=== PATIENT | female | born 1950 | race Caucasian/White ===

== ENCOUNTER 2022-01-03 08:48 | Observation (INO) ==
--- NOTE | 2021-12-02 15:55 | PAT Medication Instructions ---
Medication Instructions Date of Service December 02, 2021 Home Medications atenolol 100 mg-chlorthalidone 25 mg tablet 1 tab PO QAM atorvastatin 10 mg tablet 10 mg PO QAM gabapentin 300 mg capsule 300 mg PO HS loratadine 5 mg-pseudoephedrine ER 120 mg tablet,extended release,12hr (Claritin-D 12 Hour) 1 tab PO Q12H PRN folic acid 800 mcg tablet 4,000 mcg PO QAM metformin 500 mg tablet 500 mg PO QAM methotrexate sodium 2.5 mg tablet 12.5 mg PO Q7D omega-3 fatty acids-vitamin E 1,000 mg capsule 2 cap PO BID paroxetine HCl 20 mg tablet (Paxil) 40 mg PO QAM cholecalciferol (vitamin D3) 50 mcg (2,000 unit) capsule (Vitamin D3) 50 mcg PO HS cyanocobalamin (vitamin B-12) 2,500 mcg tablet 2,500 mcg PO QAM meloxicam 15 mg tablet 15 mg PO QAM STOP 7 days before surgery methotrexate sodium 2.5 mg tablet 12.5 mg PO Q7D ASK your surgeon for instructions meloxicam 15 mg tablet 15 mg PO QAM STOP taking 2 weeks before surgery omega-3 fatty acids-vitamin E 1,000 mg capsule 2 cap PO BID DO NOT take the morning of surgery loratadine 5 mg-pseudoephedrine ER 120 mg tablet,extended release,12hr (Claritin-D 12 Hour) 1 tab PO Q12H PRN folic acid 800 mcg tablet 4,000 mcg PO QAM metformin 500 mg tablet 500 mg PO QAM cyanocobalamin (vitamin B-12) 2,500 mcg tablet 2,500 mcg PO QAM Take morning of surgery With a small sip of water, OTHERWISE NOTHING TO EAT OR DRINK AFTER MIDNIGHT: atenolol 100 mg-chlorthalidone 25 mg tablet 1 tab PO QAM atorvastatin 10 mg tablet 10 mg PO QAM paroxetine HCl 20 mg tablet (Paxil) 40 mg PO QAM Take evening before surgery gabapentin 300 mg capsule 300 mg PO HS loratadine 5 mg-pseudoephedrine ER 120 mg tablet,extended release,12hr (Claritin-D 12 Hour) 1 tab PO Q12H PRN(if needed) cholecalciferol (vitamin D3) 50 mcg (2,000 unit) capsule (Vitamin D3) 50 mcg PO HS Other Notes If you have any questions please call us at [phone] or [phone] or [phone] or [phone]
--- NOTE | 2021-12-06 11:35 | Anesthesiology Consultation ---
Date of Service December 06, 2021 Assessment & Plan (1) Encounter for pre-operative examination: - COVID screening: Per assessment on 12/06: No known COVID-19 positive contacts or current COVID-19 related symptoms. Travel screen negative. Patient vaccinated. Surgeon arranging preop COVID testing. Awaiting results. - S/P Left shoulder arthroscopy, RCR, debridement (02/09/20): LMA#4 + PNB at [facility]. No issues per anesthesia progress note. - S/P Right SHALA (04/12/21): SAB x3 attempts, "pt moving around.. O2 sats decreasing even in the presence of oral airway and jaw thrust.. LMA inserted atraumatically.. O2 sats increased to 100%." - Check BSG AM DOS - Hx LBBB: NS IVCD on 11/2021 EKG but LBBB noted on 04/2021 EKG (also dating back to 02/2020 EKG in [facility]). No recent echo or previous cardiology evaluation. Pt with multiple risk factors (obesity, HÉCTOR, diabetes). Case reviewed with Dr. Gil. Recommends cardiology preop evaluation prior to surgery- will need to be arranged. Chart Review Chart Review: Patient seen in Pre Admission Testing Teaching & Discussion Pre-Anesthesia Teaching/Discussion Notes: Instructed NPO after midnight before surgery,except medications with 15 cc of water. Medication instructions provided according to the PAT guidelines. History Surgery Operation Date: 01/03/22 10:10 Proposed Procedures p Left Total Knee Arthroplasty - Balaji Love, Height/Weight Height: 5 ft 6 in Weight: 98 kg Allergies Allergy/AdvReac Type Severity Reaction Status Date / Time No Known Allergies Allergy Verified 11/29/21 15:04 Medications Home Medications Medication Instructions Recorded Confirmed Last Taken atenolol 100 mg-chlorthalidone 25 1 tab PO QAM 01/17/20 11/29/21 04/10/21 10:30 mg tablet atorvastatin 10 mg tablet 10 mg PO QAM 01/17/20 11/29/21 04/10/21 10:30 gabapentin 300 mg capsule 300 mg PO HS 01/17/20 11/29/21 04/10/21 23:00 loratadine 5 mg-pseudoephedrine ER 1 tab PO Q12H PRN SEASONAL 01/17/20 11/29/21 04/05/21 09:00 120 mg tablet,extended ALLERGIES release,12hr (Claritin-D 12 Hour) folic acid 800 mcg tablet 4,000 mcg PO QAM 01/24/20 11/29/21 04/10/21 10:30 metformin 500 mg tablet 500 mg PO QAM 01/24/20 11/29/21 04/10/21 10:30 methotrexate sodium 2.5 mg tablet 12.5 mg PO Q7D 01/24/20 11/29/21 03/30/21 10:30 omega-3 fatty acids-vitamin E 2 cap PO BID 01/24/20 11/29/21 03/29/21 10:30 1,000 mg capsule paroxetine HCl 20 mg tablet (Paxil) 40 mg PO QAM 05/30/20 11/29/21 04/11/21 10:30 cholecalciferol (vitamin D3) 50 50 mcg PO HS 03/08/21 11/29/21 04/10/21 10:30 mcg (2,000 unit) capsule (Vitamin D3) cyanocobalamin (vitamin B-12) 2,500 mcg PO QAM 11/29/21 11/29/21 Unknown 2,500 mcg tablet meloxicam 15 mg tablet 15 mg PO QAM 11/29/21 11/29/21 Unknown Past Medical History Medical History Anxiety Stable Diabetes NIDDM, controlled per pt Fatty liver High cholesterol History of breast cancer Right (2004) s/p surgery and radiation-lymph node excision per pt, denies limb restriction History of uterine cancer 2006 s/p hysterectomy HTN (hypertension) controlled per pt, stable LBBB (left bundle branch block) Noted on 04/12/21 EKG Rheumatoid arthritis Sleep apnea CPAP-nightly Exercise / Class Metabolic Activity II 4-5 Yardwork/Stairs/Walk up hill Past Family History Family History Brother Family history of colon cancer Past Surgical History Surgical History History of 3 sections History of colonoscopy History of hysterectomy History of repair of rotator cuff Left shoulder arthroscopy, RCR, debridement (02/09/20): LMA#4 + PNB at [facility]. No issues per anesthesia progress note. History of surgery C7-T1 laminotomy History of surgery x2 Right breast (denies limb restriction) History of tonsillectomy Hx of total hip arthroplasty Right SHALA (04/12/21): SAB x3 attempts, "pt moving around.. O2 sats decreasing even in the presence of oral airway and jaw thrust.. LMA inserted atr aumatically.. O2 sats increased to 100%." Past Anesthesia History No Family Hx of Anesthesia Complications and Other (Right SHALA (04/12/21): SAB x3 attempts, "pt moving around.. O2 sats decreasing even in the presence of oral airway and jaw thrust.. LMA inserted atraumatically.. O2 sats increased to 100%.") History of PONV No Hx of PONV and No Hx of Motion Sickness Social History Smoking Status: Never smoker Do You Dip or Chew Tobacco: No Hx Alcohol Use: Yes Alcohol type: wine alcohol intake frequency: holidays/special occasions only Hx Substance Use: No substance use type: does not use Review of Systems Patient denies chest pain, shortness of breath, dyspnea on exertion, fever, chills, cough, wheezing, palpitations. Physical Exam Vital Signs VITALS BP 137/84 P 62 TEMP 98.4 SP02 98%RA RESP 16 PHYSICAL Full cervical extension range of motion. Full TMJ range of motion. TMD 2.5 finger breaths Mallampati Score 3 Dentition: intact, + crown Lungs: clear throughout to auscultation Cardiac: regular rate and rhythm, no murmurs noted Spine: normal Carotid arteries: negative bruit Extremities: no edema Lab Results Anesthesia Preop Results Results Anesthesia Widget: WBC 6.32 K/ul (4.8-10.8) 12/06/21 Hgb 11.7 g/dl (12.0-16.0) L 12/06/21 Hct 34.7 % (34.1-44.9) 12/06/21 Plt 184 K/uL (130-400) 12/06/21 Na 137 mmol/L (136-145) 12/06/21 K 3.7 mmol/L (3.5-5.1) 12/06/21 Cl 101 mmol/L (98-107) 12/06/21 CO2 31 mmol/L (21-32) 12/06/21 BUN 16 mg/dl (6-23) 12/06/21 Creat 0.70 mg/dl (0.6-1.2) 12/06/21 Glucose Level 107 mg/dl (70-99(Fasting)) H 12/06/21 PT 10.9 Seconds (9.0-12.0) 12/06/21 PTT 24.8 Seconds (21.0-31.0) 12/06/21 INR 1.0 (0.9-1.1) 12/06/21 HA1c 6.2 % (4.5-5.6) H 12/06/21 Blood Type A Positive 12/06/21 Antibody Screen NEGATIVE 12/06/21 Testing Electrocardiogram Date: 12/06/21 SR with first degree AVB at 60bpm. NS IVCD. Chest X-Ray Date: 12/06/21 FINDINGS: The lungs are clear. Cardiac silhouette is normal in size. No pleural effusions. No pneumothorax. Is 2.3 cm gallstone within the right upper quadrant. IMPRESSION: No acute process.
--- NOTE | 2022-01-02 09:40 | History & Physical Report ---
Date of Service January 02, 2022 Assessment & Plan (1) Osteoarthritis of left knee: We will proceed with a left total knee arthroplasty. Postoperatively she will be started on aspirin for DVT prophylaxis and kept overnight in the hospital for postoperative medical management. She plans to have home health in [place] upon discharge. History of Present Illness Chief Complaint: Osteoarthritis left knee. Primary Care Provider: ALEKSANDAR Vera Amarilis is a pleasant 71-year-old female who underwent a right hip replacement in April 2021. She is doing well with that. Unfortunately, she is really struggling with her left knee. I have been giving her serial injections. X- rays and clinical examination have been diagnostic for advanced arthritis of the left knee. After failing extensive conservative treatment, she has elected to proceed with a left total knee arthroplasty. . Allergies Allergy/AdvReac Type Severity Reaction Status Date / Time No Known Allergies Allergy Verified 11/29/21 15:04 Home Medications Medication Instructions Recorded Confirmed Type atenolol 100 mg-chlorthalidone 25 1 tab PO QAM 01/17/20 11/29/21 History mg tablet atorvastatin 10 mg tablet 10 mg PO QAM 01/17/20 11/29/21 History gabapentin 300 mg capsule 300 mg PO HS 01/17/20 11/29/21 History loratadine 5 mg-pseudoephedrine ER 1 tab PO Q12H PRN SEASONAL 01/17/20 11/29/21 History 120 mg tablet,extended ALLERGIES release,12hr (Claritin-D 12 Hour) folic acid 800 mcg tablet 4,000 mcg PO QAM 01/24/20 11/29/21 History metformin 500 mg tablet 500 mg PO QAM 01/24/20 11/29/21 History methotrexate sodium 2.5 mg tablet 12.5 mg PO Q7D 01/24/20 11/29/21 History omega-3 fatty acids-vitamin E 2 cap PO BID 01/24/20 11/29/21 History 1,000 mg capsule paroxetine HCl 20 mg tablet (Paxil) 40 mg PO QAM 05/30/20 11/29/21 History cholecalciferol (vitamin D3) 50 50 mcg PO HS 03/08/21 11/29/21 History mcg (2,000 unit) capsule (Vitamin D3) cyanocobalamin (vitamin B-12) 2,500 mcg PO QAM 11/29/21 11/29/21 History 2,500 mcg tablet meloxicam 15 mg tablet 15 mg PO QAM 11/29/21 11/29/21 History Past Med/Surg History Medical History Anxiety Stable Diabetes NIDDM, controlled per pt Fatty liver High cholesterol History of breast cancer Right (2004) s/p surgery and radiation-lymph node excision per pt, denies limb restriction History of uterine cancer 2006 s/p hysterectomy HTN (hypertension) controlled per pt, stable LBBB (left bundle branch block) Noted on 04/12/21 EKG Rheumatoid arthritis Sleep apnea CPAP-nightly Surgical History History of 3 sections History of colonoscopy History of hysterectomy History of repair of rotator cuff Left shoulder arthroscopy, RCR, debridement (02/09/20): LMA#4 + PNB at [facility]. No issues per anesthesia progress note. History of surgery C7-T1 laminotomy History of surgery x2 Right breast (denies limb restriction) History of tonsillectomy Hx of total hip arthroplasty Right SHALA (04/12/21): SAB x3 attempts, "pt moving around.. O2 sats decreasing even in the presence of oral airway and jaw thrust.. LMA inserted atraumatically.. O2 sats increased to 100%." Family History Brother Family history of colon cancer Social History Smoking Status: Never smoker Second Hand Exposure: No; Hx Alcohol Use: Yes Alcohol type: wine Hx Substance Use: No Preferred Language: Sinhala Communication Ability: Effective Senior Chemical Engineer Required: No Beliefs That Will Affect Care: None Current Living Situation: Spouse Feels Safe at Home: Yes Assistive Devices: Cane, CPAP and Glasses Review of Systems All systems reviewed & are unremarkable except as noted in HPI & below. Physical Exam On physical examination of the left knee, she has range of motion of 0 to 115 degrees. She has no instability. She has pain of the distal femoral condyles and trace effusion.. Constitutional WD/WN, vitals as above Eyes PERRL, conjunctivae normal, anicteric sclerae ENMT external ear and nose normal, oropharynx normal Neck trachea midline, no thyromegaly Respiratory normal respiratory effort, lungs clear to auscultation Cardiovascular RRR, no murmur, no edema Gastrointestinal (Abdomen) normal bowel sounds, soft, nontender, no hepatosplenomegaly Skin no rashes, warm and dry Psychiatric A+Ox3, euthymic affect Results & Data Results & Data Laboratory Results . Diagnostic Findings X-rays of the left knee show advanced osteoarthritis with joint space narrowing osteophyte formation and [id number] articulation. There is multiple loose bodies within the knee joint as well. PG Care Time/CCT Total # of Minutes Spent Total Time Spent with Patient: Total time spent is greater than 50% in coordination of care (as documented) at patient's floor/unit and/or counseling patient: Coding Level of Care Code None Diagnoses Osteoarthritis of left knee M17.12
[~2022-01-03 08:48] MED LIST: ACETAMINOPHEN 500 MG TAB PO SCH; BUPIVACAINE 0.5 % 5 MG/1 ML PF 10ML VIAL ONE; FAMOTIDINE 20 MG TAB PO SCH; GABAPENTIN 300 MG CAP PO SCH; Ketorolac (*for OR use only*) 30 MG, dexAMETHasone 4 MG, KETAMINE HCL (**OR use only) 1... INFIL SCH; LR 500ML BOLUS, THEN 15ML/HR IV SCH; LR 60ML/HR IV SCH; ROPIVACAINE 0.5% 5 MG/ML 30 ML VIAL ONE; TRANEXAMIC ACID 1,000 MG **IV Intra-op IV SCH; TRANEXAMIC ACID 1,000 MG **IV Pre-op IV SCH; ceFAZolin 2000MG 2,000 MG/15 ML SYR IV SCH; dexAMETHasone 4 MG TAB PO SCH
--- NOTE | 2022-01-03 10:45 | History & Physical Bridge Note ---
Date of Service January 03, 2022 History & Physical Bridge Note I have examined the patient, reviewed the History & Physical and in the interval since the performance of the History & Physical I have noted the following changes of clinical significance: no changes noted
[2022-01-03] MEDS ORDERED: ORTHO JOINT ANESTHETIC ONE (11:13)
[2022-01-03] MEDS ORDERED: PROPOFOL IV EMULSION 10 MG/ML 20 ML VIAL IV ONE (11:18)
[2022-01-03] MEDS ORDERED: LIDOCAINE 2% MPF LOCAL 5 ML VIAL INFIL ONE (11:18)
[2022-01-03] MEDS ORDERED: KETAMINE 50 MG/5 ML SYRINGE ONE (11:19)
[2022-01-03] MEDS ORDERED: MIDAZOLAM HCL 1 MG/ML 2ML VIAL ONE (11:19)
[2022-01-03] MEDS ORDERED: HYDROmorphone INJ 1 MG/ML SYRINGE IV PRN (11:42)
[2022-01-03] MEDS ORDERED: ePHEDrine sulfate 50 MG/ML AMP IV PRN (11:42)
[2022-01-03] MEDS ORDERED: ATROPINE SULFATE 0.1 MG/ML 10ML SYR IV PRN (11:42)
[2022-01-03] MEDS ORDERED: ONDANSETRON INJ 2 MG/ML 2 ML VIAL IV PRN ×2 (11:42→15:13)
--- NOTE | 2022-01-03 13:08 | Operative Report ---
PG Post Operative Report Pre & Post Diagnosis Operation Date: 01/03/22 11:45 Pre-Op Diagnosis: Left Knee Osteoarthritis Post-Op Diagnosis: Left Knee Osteoarthritis I identified the patient and participated in the time-out.: Yes Procedure Operation Date: 01/03/22 11:45 Actual Procedures p Left Total Knee Arthroplasty(Left) - Balaji Love DO Surgeon Balaji Love DO Grocery Clerk Marking Balaji Rowe PA-C Estimated Blood Loss 100 Findings Consistent with Post-Op Diagnosis Specimens Left femoral and tibial bone Description of Procedure Implants used: I used a Manav Persona total knee arthroplasty system with a size 7 standard PS femur, D tibia, 31 oval patella, and a size 12 CPS polyethylene bearing. All components were cemented in place with Biomet cement. Amarilis arrived [facility] for the above procedure. She was seen in the preoperative holding area and the operative extremity was identified and signed. She was given a preoperative antibiotic, TXA, a spinal anesthetic and an adductor nerve block. She was taken back to the operating room and laid on the table in supine position. She was given basic sedation. The operative knee was then prepped and draped in sterile fashion. A timeout was done, and the patient and the operative extremity was properly identified. A midline incision was made directly over the patella. Dissection was taken down to the extensor mechanism. A subvastus arthrotomy was used. The medial retinaculum was released and the fat pad was mostly excised. The knee was flexed and the ACL, PCL, and meniscus were removed. A drill was sent down the center of the femoral canal followed by an intramedullary sharri. Off that sharri a distal femoral cutting block was placed. 9 mm was resected off the distal femur at 5 of valgus. A posterior referencing AP sizing guide was then placed on the distal femur. The femur measured to be a size 7. 2 drill holes were placed in 3 of external rotation. A 4-in-1 cutting block was then impacted into place. Anterior, posterior, and chamfer cuts were then made. The proximal tibia was then exposed. An external tibial alignment guide was placed. A tibial cut guide was then anchored in place and the proximal tibia was then resected. The posterior aspect of the knee was then opened up and any additional meniscus fragments and osteophytes were removed. The tibia measured to be a size D. The tibial plate was then placed in the appropriate rotation and the tibia was drilled and punched. Trial components were then placed. I used a size 12 CPS polyethylene insert. The knee was brought through a full range of motion and felt to be stable. The peg holes for the femoral component were then drilled. The patella was then everted and 9 mm was resected off the posterior aspect of the patella. The patella measured to be a size 31 oval. 3 peg holes were then drilled. A trial patella was placed. The knee was once again brought through a full range of motion and felt to be stable. Trial components were then removed. The surrounding soft tissues were injected with 100 cc of an orthopedic pain control cocktail. All components were then cemented into place with Biomet cement. The final polyethylene insert was then snapped into place. Once cement was dry the tourniquet was deflated. Hemost asis was obtained. A dilute betadyne lavage was then done for 3 minutes. The joint was then irrigated with normal saline solution. The subvastus arthrotomy was then closed with #1 Vicryl suture. The skin was closed with 2-0 Vicryl, 3- 0V lock suture, and shante. A soft compressive dressing was placed. She was then transferred to a hospital bed and taken to the postanesthesia care unit in stable condition. She tolerated the procedure well. Balaji Rowe PA-C, was present for the entire procedure. He was critical for patient positioning, prepping, draping, retraction exposure, wound closure and application of sterile dressing. I attest to the content of the Intraoperative Record and any orders documented therein. Any exceptions are noted below.
[2022-01-03] MEDS ORDERED: ONDANSETRON INJ 2 MG/ML 2 ML VIAL ONE (13:39)
--- NOTE | 2022-01-03 14:16 | XRay Report ---
TWO VIEWS LEFT KNEE CLINICAL HISTORY: Postoperative examination. FINDINGS: AP and crosstable lateral portable views of the left knee are obtained. A left knee arthrop lasty is in near anatomic alignment. There has been undersurface remodeling of the patella. No acute fracture is seen. There are expected postoperative changes around the knee including skin clips, soft tissue edema, and subcutaneous gas. IMPRESSION: Expected postoperative changes status post left knee arthroplasty. No acute fracture is s een. ACT 112: Negative or not required by law. Electronically signed by: Luis Miguel Fuller M.D. 01/03/2022 2:14 PM
[2022-01-03] MEDS ORDERED: bisacodyL 10 MG SUPP PR PRN (15:13)
[2022-01-03] MEDS ORDERED: METOCLOPRAMIDE HCL INJ 5 MG/ML 2 ML VIAL IV PRN (15:13)
[2022-01-03] MEDS ORDERED: oxyCODONE HCL IR 5 MG TAB (IMMEDIATE RELEASE) PO PRN (15:13)
[2022-01-03] MEDS ORDERED: HYDROmorphone INJ 0.5 MG/0.5 ML SYR IV PRN (15:13)
[2022-01-03] MEDS ORDERED: MAGNESIUM HYDROXIDE SUSP 30 ML UDC PO PRN (15:13)
[2022-01-03] MEDS ORDERED: NALOXONE HCL 0.4 MG/1 ML VIAL/CARP IV PRN (15:13)
[2022-01-03] MEDS ORDERED: PHARMACY GLYCEMIC MGMT CONSULT PRN (15:13)
[2022-01-03] MEDS: SODIUM CHLORIDE 0.9% 1000ML 1,000 ML IV SCH (15:20)
--- NOTE | 2022-01-03 15:24 | Anesthesiology Progress Note ---
Date of Service January 03, 2022 Anesthesia Post Procedure Vital Signs Vital Signs: Temp Pulse Pulse Resp BP BP Pulse Ox 01/03/22 14:45 71 20 148/83 H 95 01/03/22 14:35 36.5 C 72 15 148/86 H 95 01/03/22 14:15 64 14 130/92 95 01/03/22 14:05 62 15 144/84 H 100 01/03/22 14:25 63 17 154/77 H 94 01/03/22 13:55 61 15 152/76 H 100 01/03/22 13:45 61 16 158/81 H 94 01/03/22 13:35 36.8 C 66 17 158/81 H 98 01/03/22 09:51 37.3 C 82 18 182/103 H 95 O2 Del Method O2 Flow Rate 01/03/22 14:45 Nasal Cannula 3 01/03/22 14:35 Nasal Cannula 3 01/03/22 14:15 Oxymask 5 01/03/22 14:05 Oxymask 5 01/03/22 14:25 Oxymask 5 01/03/22 13:55 Oxymask 5 01/03/22 13:45 Oxymask 5 01/03/22 13:35 Oxymask 5 01/03/22 09:51 Room Air Pain Intensity Left Knee: Pain Intensity: 6 Transfer of Care Handoff Completed per policy Notes Mental Status: alert / awake / arousable Patient Amnestic to Procedure: Yes Nausea / Vomiting: adequately controlled Pain: adequately controlled Airway Patency, RR, SpO2: stable & adequate BP & HR: stable & adequate Hydration State: stable & adequate Neuraxial Anesthesia: was administered and sensory block is resolving Anesthetic Complications: no major complications apparent
[2022-01-03] MEDS ORDERED: DEXTROSE 50% 50 ML SYRINGE IV PRN (15:45)
[2022-01-03] MEDS ORDERED: GLUCOSE 40% GEL 15 GM TUBE PO PRN (15:45)
[2022-01-03] MEDS ORDERED: CARBOHYDRATES FOR HYPOGLYCEMIA PO PRN (15:45)
[2022-01-03] MEDS ORDERED: GLUCOSE 10 TAB/TUBE PO PRN (15:45)
[2022-01-03] MEDS ORDERED: LANTUS PER UNIT CHARGE SQ ONE (15:45)
[2022-01-03] MEDS ORDERED: GLUCAGON FOR INJ 1 MG VIAL IM PRN (15:45)
--- NOTE | 2022-01-03 15:51 | Pharmacy Report ---
Pharmacy Glycemic Short Note 2 - Date of Service January 03, 2022 - Glycemic Short BSG Results (Last 24 hours): 01/03/22 01/03/22 09:39 13:37 POC Glucose 157 H 142 H OUTPATIENT ANTIDIABETIC REGIMEN: * Metformin 500 mg PO daily HbA1c: 6.2% (12/06/21) ASSESSMENT: * CB is a 71 year old female POD #0 s/p left total knee arthroplasty * Received 8 mg PO dexamethasone + intra-articular ortho mix containing dexamethasone * Well-controlled diabetes as an outpatient with metformin only (A1c: 6.2%) * Fasting BSG of 157 mg/dL this morning, postop BSG of 142 mg/dL * Will give ~0.2 unit/kg dose of basal insulin in light of elevated fasting BSG and steroid admin. in OR PLAN FOR INPATIENT GLYCEMIC CONTROL: * Hold outpatient oral diabetes medications * consider restarting tomorrow * Basal insulin * Lantus 20 units SQ x 1 (~0.2 unit/kg) * Bolus insulin * NovoLog per scale ACHS or Q6hrs while NPO * Goal Range: Low 110 mg/dL - High 140 mg/dL * Correction Factor: 20 mg/dL/unit * Nutritional / Prandial insulin per carb ratio of 1 unit per 7 grams CHO consumed
[2022-01-03] MEDS: ACETAMINOPHEN 500 MG TAB PO SCH ×2 (16:14→21:25)
[2022-01-03] MEDS: KETOROLAC TROMETHAMINE 15 MG/ML VIAL IV SCH (17:55)
[2022-01-03] MEDS: INSULIN ASPART PER UNIT SC SCH ×2 (18:21→21:24)
[2022-01-03] MEDS: DOCUSATE SODIUM 100 MG CAP PO SCH (19:54)
[2022-01-03] MEDS: ASPIRIN 81 MG ECTAB PO SCH (19:54)
[2022-01-03] MEDS: ceFAZolin 2000MG 2,000 MG/15 ML SYR IV SCH (19:59)
[2022-01-03] MEDS ORDERED: GABAPENTIN 300 MG CAP PO SCH (21:00)
[2022-01-03] MEDS ORDERED: SENNA 8.6 MG TAB PO SCH (21:00)
[2022-01-04] MEDS: SODIUM CHLORIDE 0.9% 1000ML 1,000 ML IV SCH (00:02)
[2022-01-04] MEDS: KETOROLAC TROMETHAMINE 15 MG/ML VIAL IV SCH ×2 (01:22→06:03)
[2022-01-04 02:20] VITALS: TEMP 98.2; O2SAT 94
[2022-01-04] MEDS: ACETAMINOPHEN 500 MG TAB PO SCH (05:02)
[2022-01-04] MEDS: ceFAZolin 2000MG 2,000 MG/15 ML SYR IV SCH (05:02)
[2022-01-04 07:24] VITALS: BP 144/77; PULSE 70
--- NOTE | 2022-01-04 08:25 | Orthopedic Progress Note ---
Date of Service January 04, 2022 Assessment & Plan (1) Status post left knee replacement: Overall she is doing very well. She is not having much pain in the left knee. She will be seen by physical therapy today for ambulation and range of motion exercises. She is on aspirin for DVT prophylaxis. She will be discharged home later today. She will follow-up with orthopedics in 2 weeks. Gloria Olmos was seen and examined at bedside this morning. Overall she is doing very well. She is not having much pain in the left knee. She has been up and ambulating to the bathroom. She has no complaints.. Review of Systems All systems reviewed & are unremarkable except as noted in HPI & below. Physical Exam On physical examination of the left knee, the dressing is clean and dry. Her leg is out full extension. She has active dorsiflexion plantarflexion of the left ankle.. Results & Data Results & Data Laboratory Results . Diagnostic Findings Postoperative x-rays of the left knee show the prosthesis to be in anatomic alignment without any evidence of fracture, desiccation, or loosening. PG Care Time/CCT Total # of Minutes Spent Total Time Spent with Patient: Total time spent is greater than 50% in coordination of care (as documented) at patient's floor/unit and/or counseling patient: Coding Level of Care Code 07039 Post Operative Follow-Up Diagnoses Status post left knee replacement Z96.652
--- NOTE | 2022-01-04 08:26 | Discharge Summary ---
Date of Service January 04, 2022 Admission HPI (Per Admitting) Amarilis is a pleasant 71-year-old female who underwent a right hip replacement in April 2021. She is doing well with that. Unfortunately, she is really struggling with her left knee. I have been giving her serial injections. X- rays and clinical examination have been diagnostic for advanced arthritis of the left knee. After failing extensive conservative treatment, she has elected to proceed with a left total knee arthroplasty. . Admission Exam (Per Admitting) On physical examination of the left knee, she has range of motion of 0 to 115 degrees. She has no instability. She has pain of the distal femoral condyles and trace effusion.. Principal Diagnosis Same as "Discharge Diagnosis" noted below under Discharge Instructions. Discharge Exam On physical examination of the left knee, the dressing is clean and dry. Her leg is out full extension. She has active dorsiflexion plantarflexion of the left ankle.. Discharge Data Procedures Performed Operation Date: 01/03/22 11:45 Actual Procedures p Left Total Knee Arthroplasty(Left) - Balaji Love DO Ordered Studies 01/03/22 05:00 US - OR guided needle placemen Routine Hospital Course (1) Status post left knee replacement: On January 03, 2022 Amarilis arrived at [facility] and underwent a left knee replacement that complication. She had a spinal anesthetic. Postoperatively she was started on aspirin for DVT prophylaxis and transferred to the general orthopedic floors. Her hospital course was uneventful. On postop day #1, her vital signs were stable and her pain was well controlled. She was able to participate well with physical therapy doing ambulation and range of motion exercises. She was then discharged home. She will follow-up with orthopedics in 2 weeks. PG Care Time/CCT Total # of Minutes Spent Total Time Spent with Patient: Total time spent is greater than 50% in coordination of care (as documented) at patient's floor/unit and/or counseling patient: Discharge Plan Discharge Items Patient Disposition: Home - Home Health Services Reason For Visit: Left Knee Osteoarthritis Discharge Diagnosis: Left knee replacement Activity: Per Instructions section Non-emergency contact: Surgeon Call non-emergency contact if: your wound has increased redness and your wound has increased drainage Follow-up/Referrals: Colt Hinkle CRNP [Primary Care Provider] - Diet: Regular Addtl Attending Provider Instructions: Activity and Therapy Recommendations: * If you are using [facility] then therapy will be provided at your home until they feel you have accomplished all of your goals. * If you are using [facility] then Physical Therapy will be provided until they feel you are ready to start Outpatient Physical Therapy. * If you are not using home therapy then Outpatient Physical Therapy should start about 3-5 days from your day of surgery. Therapy will last about 6-10 weeks * It is important not to put a pillow under your knee when you are relaxing or sleeping. It is just as important to make sure you are getting your knee perfectly straight as it is to regain your knee bend. * You were shown a series of exercises in the hospital. Do these exercises three times each day including the exercises you were shown in physical therapy. * Get up and walk several times each day. For the first four weeks, try not to stand or walk for more than one hour at a time. If you do stand or walk for more than one hour, you will not hurt anything, but your leg will likely swell. * As you feel comfortable, you may change from the walker or crutches to a cane and then to independent walking. Medications: * Narcotic You will likely be sent home from the hospital with a prescription for the narcotic pain medication that worked best throughout your stay. * Aspirin Most patients will be required to take Aspirin 81mg twice a day for 6 weeks after surgery. This is obtained [id number] and a prescription is not necessary. * Other medications may be prescribed for specific circumstances. If you have any questions, please call the office at . * Resume previous home medications unless otherwise instructed TEDs/Elastic Stockings: The white elastic stockings help limit swelling and prevent blood clots from forming in your legs.~ The more you wear them, the more they work. Wear them for six weeks. Dressing Care: The dressing can be changed after physical therapy on postop day #1. Daily dry dressing changes for a few days, especially if the incision is still draining some. If the incision is not draining then you may leave the shante open to air. If there is a little bit of drainage or if the shante are getting stuck on your clothing then cover the incision with a dry dressing. The shante will be removed at your 2 week follow-up appointment. Showering: You may shower 5 days from the day of surgery as long as the incision is no longer draining. You may shower with the shante exposed. Let soapy water run over the shante and pat them dry. Do not scrub or soak the incision. Things To Watch For: * Drainage from the incision site that occurs more than one week after your surgery. * Increased redness at the incision site. * Fever above 102 degrees Fahrenheit. * Unusual chest pain or shortness of breath. * Call [facility] at with any of the above problems Follow-Up Visit: Follow-up with Dr. Love's PA (Balaji Rowe) 2-3 weeks after your day of surgery. He will remove your shante and answer any questions. If you have any additional questions or concerns, Dr Love is usually in the office at the same time and will be available An appointment was probably scheduled when you signed-up for surgery in the office. If you have any questions call Office Instructions: More detailed instructions as well as Frequently Asked Questions were provided in a folder by our office when you signed-up for surgery. Please review these instructions when you get home. If you have any further questions or concerns, please feel free to call the office at [phone] Pending Studies at Discharge: No Stand-Alone Forms: My [facility] Medications and DC Order Prescriptions: New oxycodone-acetaminophen 5-325 mg tablet 1 tab PO Q6H PRN (Reason: pain) Qty: 30 0RF aspirin 81 mg Tablet,Delayed Release (Dr/Ec) 81 mg PO BID 42 Days Qty: 84 0RF Continued atorvastatin [Lipitor] 10 mg tablet 10 mg PO QAM atenolol-chlorthalidone [Tenoretic 100] 100-25 mg tablet 1 tab PO QAM gabapentin 300 mg capsule 300 mg PO HS Claritin-D 12 Hour 5-120 mg tablet extended release 12 hr 1 tab PO Q12H PRN (Reason: SEASONAL ALLERGIES) paroxetine HCl [Paxil] 20 mg tablet 40 mg PO QAM metformin 500 mg Tablet 500 mg PO QAM methotrexate sodium 2.5 mg Tablet 12.5 mg PO Q7D Label Comments: FIVE TABLETS (2.5 MG EACH) ONCE A WEEK - THURSDAY omega-3 fatty acids-vitamin E 1,000 mg Capsule 2 cap PO BID folic acid 800 mcg Tablet 4,000 mcg PO QAM cholecalciferol (vitamin D3) [Vitamin D3] 50 mcg (2,000 unit) Capsule 50 mcg PO HS cyanocobalamin (vitamin B-12) 2,500 mcg Tablet 2,500 mcg PO QAM meloxicam [Mobic] 15 mg tablet 15 mg PO QAM Discharge Orders: Discharge Order (Routine); Ordered 01/04/22 Ordered By: Balaji Love Admission Data Admit Date/Time: 01/03/22 13:36 Attending Provider: Balaji Love Admit Provider: Balaji Love Primary Care Provider: Colt Hinkle
[2022-01-04] MEDS ORDERED: ATENOLOL 50 MG TABLET PO SCH (09:00)
[2022-01-04] MEDS ORDERED: PARoxetine HCL 20 MG TAB PO SCH (09:00)
[2022-01-04] MEDS ORDERED: CHLORTHALIDONE 25 MG TAB PO SCH (09:00)
[2022-01-04] MEDS ORDERED: FOLIC ACID 1 MG TAB PO SCH (09:00)
[2022-01-04] MEDS ORDERED: ATORVASTATIN 10 MG TAB PO SCH (09:00)
[2022-01-04] MEDS ORDERED: MULTIVITAMIN TAB PO SCH (09:00)
[2022-01-04] MEDS: ASPIRIN 81 MG ECTAB PO SCH (09:22)
[2022-01-04] MEDS: DOCUSATE SODIUM 100 MG CAP PO SCH (09:22)
[2022-01-04] MEDS: INSULIN ASPART PER UNIT SC SCH (10:42)
== END 2022-01-04 13:11 | disposition home health service (06) ==
LOC: ASU 08:48 → 3N 08:48
DX: Z79.84 Long term (current) use of oral hypoglycemic drugs; M17.12 Unilateral primary osteoarthritis, left knee; Z96.641 Presence of right artificial hip joint; Z79.899 Other long term (current) drug therapy